=== PATIENT | female | born 1945 | race Caucasian/White ===

== ENCOUNTER 2016-11-11 08:49 | Outpatient (CLI) | payer OTHER ==
[~2016-11-11 08:49] MED LIST: 0.9 % SODIUM CHLORIDE 250 ML IV.SOLN IV ONE; HEPARIN SODIUM,PORCINE 30 UNITS INJ IV ONE; SALINE FLUSH 10 ML DISP.SYRIN IVF ONE; VANCOMYCIN HCL 1 GM VIAL IV ONE
[2016-11-11] MEDS ORDERED: HEPARIN SODIUM,PORCINE 30 UNITS INJ IV SCH (09:00)
[2016-11-11] MEDS ORDERED: 0.9 % SODIUM CHLORIDE 250 ML IV.SOLN IV ONE (09:00)
[2016-11-11] MEDS ORDERED: VANCOMYCIN HCL 2 GM in 0.9 % SODIUM CHLORIDE 500 ML IV SCH (09:00)
== END 2016-11-11 08:50 ==
LOC: INF 08:49
PROVIDERS: ATTEND Hospitalist
DX: L03.90 Cellulitis, unspecified (principal)
CPT/HCPCS: 96365; 96366; J3370; J7050; J7060

== ENCOUNTER 2016-11-12 08:48 | Outpatient (CLI) | payer OTHER ==
[2016-11-12] MEDS ORDERED: VANCOMYCIN HCL 2 GM in 0.9 % SODIUM CHLORIDE 500 ML IV SCH (09:00)
[2016-11-12] MEDS ORDERED: SALINE FLUSH 10 ML DISP.SYRIN IVF ONE (09:00)
[2016-11-12] MEDS ORDERED: HEPARIN SODIUM,PORCINE 30 UNITS INJ IV SCH (09:00)
[2016-11-12] MEDS ORDERED: 0.9 % SODIUM CHLORIDE 250 ML IV.SOLN IV ONE (09:00)
== END 2016-11-12 08:50 ==
LOC: INF 08:48
PROVIDERS: ATTEND Hospitalist
DX: L03.90 Cellulitis, unspecified (principal)
CPT/HCPCS: J3370; J7050; 96365; 96366

== ENCOUNTER 2016-11-13 08:27 | Outpatient (CLI) | payer OTHER ==
[2016-11-13] MEDS ORDERED: VANCOMYCIN HCL 1 GM VIAL IV ONE (09:00)
[2016-11-13] MEDS ORDERED: HEPARIN SODIUM,PORCINE 30 UNITS INJ IV ONE (09:00)
[2016-11-13] MEDS ORDERED: HEPARIN SODIUM,PORCINE 30 UNITS INJ IV SCH (09:00)
[2016-11-13] MEDS ORDERED: VANCOMYCIN HCL 2 GM in 0.9 % SODIUM CHLORIDE 500 ML IV SCH (09:00)
[2016-11-13] MEDS ORDERED: SALINE FLUSH 10 ML DISP.SYRIN IVF ONE ×2 (09:00)
[2016-11-13] MEDS ORDERED: NORMAL SALINE 500 ML IV.SOLN IV ONE (09:00)
== END 2016-11-13 10:00 ==
LOC: INF 08:27
PROVIDERS: ATTEND Hospitalist
DX: L03.90 Cellulitis, unspecified (principal)
CPT/HCPCS: J3370; J7060; 96365; 96366

== ENCOUNTER 2016-11-14 08:43 | Outpatient (CLI) | payer OTHER ==
[2016-11-14] MEDS ORDERED: VANCOMYCIN HCL 2 GM in 0.9 % SODIUM CHLORIDE 500 ML IV SCH (09:00)
[2016-11-14] MEDS ORDERED: HEPARIN SODIUM,PORCINE 30 UNITS INJ IV ONE (09:00)
[2016-11-14] MEDS ORDERED: HEPARIN SODIUM,PORCINE 30 UNITS INJ IV SCH (09:00)
[2016-11-14] MEDS ORDERED: SALINE FLUSH 10 ML DISP.SYRIN IVF ONE (09:00)
[2016-11-14] MEDS ORDERED: NORMAL SALINE 500 ML IV.SOLN IV ONE (09:00)
[2016-11-14] MEDS ORDERED: SALINE FLUSH 10 ML DISP.SYRIN IVF SCH (09:00)
[2016-11-14] MEDS ORDERED: VANCOMYCIN HCL 1 GM VIAL IV ONE (09:00)
== END 2016-11-14 09:58 ==
LOC: INF 08:43
PROVIDERS: ATTEND Hospitalist
DX: L03.90 Cellulitis, unspecified (principal)
CPT/HCPCS: J3370; J7060; 96365; 96366

== ENCOUNTER 2016-11-15 08:38 | Outpatient (CLI) | payer OTHER ==
[2016-11-15] MEDS ORDERED: VANCOMYCIN HCL 2 GM in 0.9 % SODIUM CHLORIDE 500 ML IV SCH (09:00)
[2016-11-15] MEDS ORDERED: VANCOMYCIN HCL 1 GM VIAL IV ONE (09:00)
[2016-11-15] MEDS ORDERED: HEPARIN SODIUM,PORCINE 30 UNITS INJ IV ONE (09:00)
[2016-11-15] MEDS ORDERED: NORMAL SALINE 500 ML IV.SOLN IV ONE (09:00)
[2016-11-15] MEDS ORDERED: HEPARIN SODIUM,PORCINE 30 UNITS INJ IV SCH (09:00)
[2016-11-15] MEDS ORDERED: SALINE FLUSH 10 ML DISP.SYRIN IVF ONE ×2 (09:00)
== END 2016-11-15 10:58 ==
LOC: INF 08:38
PROVIDERS: ATTEND Hospitalist
DX: L03.90 Cellulitis, unspecified (principal)
CPT/HCPCS: J3370; J7060; 96365; 96366

== ENCOUNTER 2016-11-16 08:32 | Outpatient (CLI) | payer OTHER ==
[2016-11-16] MEDS ORDERED: VANCOMYCIN HCL 2 GM in 0.9 % SODIUM CHLORIDE 500 ML IV SCH (09:00)
[2016-11-16] MEDS ORDERED: HEPARIN SODIUM,PORCINE 30 UNITS INJ IV ONE (09:00)
[2016-11-16] MEDS ORDERED: SALINE FLUSH 10 ML DISP.SYRIN IVF ONE ×2 (09:00)
[2016-11-16] MEDS ORDERED: NORMAL SALINE 500 ML IV.SOLN IV ONE (09:00)
[2016-11-16] MEDS ORDERED: HEPARIN SODIUM,PORCINE 30 UNITS INJ IV SCH (09:00)
[2016-11-16] MEDS ORDERED: VANCOMYCIN HCL 1 GM VIAL IV ONE (09:00)
== END 2016-11-16 08:40 ==
LOC: INF 08:32
PROVIDERS: ATTEND Hospitalist
DX: L03.90 Cellulitis, unspecified (principal)
CPT/HCPCS: J3370; J7060; 96365; 96366

== ENCOUNTER 2016-11-17 08:35 | Outpatient (CLI) | payer OTHER ==
[2016-11-17] MEDS ORDERED: HEPARIN SODIUM,PORCINE 30 UNITS INJ IV SCH (09:00)
[2016-11-17] MEDS ORDERED: VANCOMYCIN HCL 2 GM in 0.9 % SODIUM CHLORIDE 500 ML IV SCH (09:00)
[2016-11-17] MEDS ORDERED: VANCOMYCIN HCL 1 GM VIAL IV ONE (09:00)
[2016-11-17] MEDS ORDERED: SALINE FLUSH 10 ML DISP.SYRIN IVF ONE ×2 (09:00)
[2016-11-17] MEDS ORDERED: NORMAL SALINE 500 ML IV.SOLN IV ONE (09:00)
[2016-11-17] MEDS ORDERED: HEPARIN SODIUM,PORCINE 30 UNITS INJ IV ONE (09:00)
== END 2016-11-17 08:36 ==
LOC: INF 08:35
PROVIDERS: ATTEND Hospitalist
DX: L03.90 Cellulitis, unspecified (principal)
CPT/HCPCS: J3370; J7060; 96365; 96366

== ENCOUNTER 2016-11-22 09:36 | Outpatient (CLI) | payer OTHER | END 2016-11-22 09:37 | LOC: INF 09:36 | PROVIDERS: ATTEND Family Medicine | DX: L03.90 Cellulitis, unspecified (principal) | CPT/HCPCS: G0463 ==

== ENCOUNTER 2017-05-28 10:21 | Day surgery (SDC) | payer OTHER ==
[~2017-05-28 10:21] MED LIST changes: -0.9 % SODIUM CHLORIDE 250 ML IV.SOLN IV ONE; -HEPARIN SODIUM,PORCINE 30 UNITS INJ IV ONE; +LACTATED RINGERS 1,000 ML IV.SOLN IV ONE; +PROPOFOL 500 MG/50 ML VIAL IV ONE; -VANCOMYCIN HCL 1 GM VIAL IV ONE
--- NOTE | 2017-05-30 10:33 | GI Report ---
REFERRING PHYSICIAN: Dr. Stalin Howell TIMBER SELECTOR: Anderson Mercado MD PROCEDURE MEDICATION: Propofol as per anesthesia. INDICATIONS: Patient is a 72-year-old who has had Hemoccult-positive stools. She has had increasing constipation. She does have central obesity. She has been taking non-steroidals. PROCEDURE PERFORMED: Colonoscopy. PROCEDURE: An Olympus video colonoscope was advanced to the rectum. 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 A very atonic redundant colon. At 45 cm in the descending colon, she had a 3 mm flat polyp removed with a cold snare. An atonic redundant colon and it took some maneuvering to the cecum. The appendiceal orifice and terminal ileum were normal. On slow withdrawal, the cecum, ascending colon, and transverse colon with melanosis coli and an atonic redundant colon and no obvious intraluminal lesions noted. In the descending colon at 45 cm on withdrawal, there was a 3 mm flat polyp removed with a cold snare. Sigmoid colon shows diverticular disease. Retroflexion of the rectum was normal. Patient tolerated the procedure well. FINDINGS: 1. Diverticular disease of the sigmoid colon. 2. Small polyp removed from the descending colon. 3. 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 RECOMMENDATIONS: 1. She needs to get rid of her Senna laxative. 2. She can do MiraLAX daily. 3. Change diet with getting rid of white carbohydrates and having increasing fiber or take Benefiber or Metamucil daily. 4. Increase water intake. 5. Follow up with Dr. Howell. 6. Pending the pathology of her polyp, consider re-looking at her colon in 5 to 10 years. cc: Dr. Stalin Howell. [facility]
== END 2017-05-28 10:22 ==
LOC: OPSURG 10:21
PROVIDERS: ATTEND Internal Medicine Gastroenterology
DX: D12.4 Benign neoplasm of descending colon (principal); K57.30 Diverticulosis of large intestine without perforation or abscess without bleeding; K92.1 Melena; K59.00 Constipation, unspecified
CPT/HCPCS: 88305; J2704; J7120; 45385; S1016

== ENCOUNTER 2017-07-11 10:30 | Outpatient (CLI) | payer OTHER | END 2017-07-11 10:32 | LOC: RAD 10:30 | PROVIDERS: ATTEND Family Medicine | DX: M81.0 Age-related osteoporosis without current pathological fracture (principal) | CPT/HCPCS: 77080 ==